=== PATIENT | male | born 1960 | race American Indian/Alaskan Native ===

== ENCOUNTER 2017-04-29 07:50 | Outpatient (CLI) | payer BC ==
--- NOTE | 2017-04-29 08:19 | XRay Report ---
XRAY LEFT KNEE 4 VIEWS: 04/29/17 07:50:00 CLINICAL: Pain. FINDINGS: Mild osteopenia. No fracture or dislocation. The joint spaces are normal. No joint effusion. The soft tissues are normal. IMPRESSION: Mild osteopenia and otherwise normal.
== END 2017-04-29 07:51 | disposition home or self-care (01) ==
LOC: SPVIMAG 07:50
PROVIDERS: ATTEND Orthopaedic Surgery
DX: M85.862 Other specified disorders of bone density and structure, left lower leg (principal)